=== PATIENT | female | born 1985 ===

== ENCOUNTER 2017-11-17 08:17 | Day surgery (SDC) | payer OTHER | END 2017-11-17 22:48 | disposition home or self-care (01) | LOC: MOI MAM 08:17 | PROC: 0HBU3ZX Excision of Left Breast, Percutaneous Approach, Diagnostic (ICD-10-PCS; principal; 2017-11-17) | DX: D49.3 Neoplasm of unspecified behavior of breast (principal) | CPT/HCPCS: 19083; 88305; A4648 ==